=== PATIENT | male | born 1980 | race Caucasian/White ===

== ENCOUNTER 2020-08-03 09:00 | Emergency (ER) | payer OTHER ==
[~2020-08-03] VITALS: Ht 177.8 cm; Wt 95.3 kg
[2020-08-03 09:40] LABS: ABSOLUTE NEUTROPHILS 5.8 thou/uL (1.4-8.2); BASOPHILS 0.7 % (0.0-2.0); HEMATOCRIT 41.9 % (42.0-52.0); HEMOGLOBIN 14.6 gm/dL (14.0-18.0); LYMPHOCYTES 28.9 % (24.0-44.0); MCH 33.7 pg (26.0-34.0); MCHC 34.9 g/dL (28.0-37.0); MCV 96.5 fL (80.0-100.0); MONOCYTES 9.8 % (1.0-8.0); PLATELET COUNT 324 thou/uL (150-400); POLYS 59.6 % (36.0-66.0); RBC 4.34 mil/uL (4.50-6.00); RDW 12.9 % (10.5-14.5); WBC 9.7 thou/uL (4.0-11.0)
[2020-08-03 09:44] LABS: CREATININE 0.9 mg/dL (0.7-1.3)
[2020-08-03 09:50] LABS: ALBUMIN 3.6 g/dL (3.4-5.0); TOTAL BILIRUBIN 0.9 mg/dL (0.2-1.0); TOTAL PROTEIN 6.9 g/dL (6.4-8.2)
[2020-08-03 10:07] LABS: PROTIME 10.3 Seconds (9.3-11.4)
--- NOTE | 2020-08-03 10:48 | EKG ---
[address] [employer] [place] [address] ELECTROCARDIOGRAM REPORT Name: TYREE HARGROVE Room #: [facility] [id number] Admission: 08/03/20 Attend Phys: Discharge: Date of : 76 Report #: [id number] [facility] ED Test Date: 2020-08-03 Test Time: 09:46:20 Pat Name: TYREE HARGROVE Department: Room: Gender: Color Checker: [facility] : 1980 Requested By: Kvng Walker Order Number: [id number] MD: Albino Duke Measurements Intervals [place] Rate: 93 P: 11 NE: 123 QRS: -5 QRSD: 90 T: -10 QT: 361 QTc: 449 Interpretive Statements Sinus rhythm Borderline T abnormalities, inferior leads No previous ECG available for comparison Electronically Signed On 08-03-2020 10:48:00 MEAT STOCK CLERK by Albino Duke [email or web address] <ELECTRONICALLY SIGNED> By: Albino Duke MD, [facility] 08/03/20 1048 0946 09 Albino Duke MD, FACC /EPI
[2020-08-03] MEDS ORDERED: POTASSIUM20 PO (11:34)
[2020-08-03] MEDS ORDERED: FUROSEMIDE 20 M20 MG PO (11:34)
[2020-08-03 11:44] VITALS: BP 122/75
== END 2020-08-03 11:44 | disposition home or self-care (01) ==
LOC: ER 09:00
PROVIDERS: Emergency Medicine
DX: R60.0 Localized edema (principal); I10 Essential (primary) hypertension; M10.9 Gout, unspecified

== ENCOUNTER 2020-10-19 08:42 | Emergency (ER) | payer OTHER ==
[~2020-10-19] VITALS: Ht 177.8 cm; Wt 94.3 kg
[~2020-10-19 08:42] MED LIST: FUROSEMIDE 20 M20 MG PO; POTASSIUM20 PO
[2020-10-19 08:59] LABS: URINE BILIRUBIN NEGATIVE (Negative); URINE BLOOD NEGATIVE (Negative); URINE CLARITY CLEAR; URINE COLOR YELLOW; URINE GLUCOSE-RANDOM* NEGATIVE (Negative); URINE KETONES NEGATIVE (Negative); URINE LEUKOCYTES-REFLEX NEGATIVE (Negative); URINE NITRITE-REFLEX NEGATIVE (Negative); URINE PROTEIN (DIPSTICK) NEGATIVE (Negative); URINE UROBILINOGEN 0.2 E.U./dl (0.2-1.0)
[2020-10-19] MEDS ORDERED: HCTZ PO (09:22)
[2020-10-19 10:05] LABS: CALCIUM 9.4 mg/dL (8.5-10.1); POTASSIUM 3.6 mmol/L (3.5-5.1)
[2020-10-19 10:12] LABS: ALBUMIN 3.6 g/dL (3.4-5.0); TOTAL BILIRUBIN 0.5 mg/dL (0.2-1.0); TOTAL PROTEIN 7.2 g/dL (6.4-8.2)
[2020-10-19 10:18] LABS: ABSOLUTE NEUTROPHILS 6.7 thou/uL (1.4-8.2); BASOPHILS 0.3 % (0.0-2.0); EOSINOPHILS 0.6 % (0.0-3.0); HEMATOCRIT 46.1 % (42.0-52.0); HEMOGLOBIN 16.3 gm/dL (14.0-18.0); LYMPHOCYTES 18.7 % (24.0-44.0); MCH 34.3 pg (26.0-34.0); MCHC 35.5 g/dL (28.0-37.0); MCV 96.7 fL (80.0-100.0); MONOCYTES 3.4 % (1.0-8.0); PLATELET COUNT 344 thou/uL (150-400); RBC 4.76 mil/uL (4.50-6.00); RDW 12.4 % (10.5-14.5); WBC 8.7 thou/uL (4.0-11.0)
[2020-10-19] MEDS ORDERED: AMOX TR-K CLV1 EAC4 PO (12:53)
[2020-10-19] MEDS ORDERED: AMOXICILLIN875 MG PO (12:53)
[2020-10-19] MEDS ORDERED: NORCO5 PO (12:53)
[2020-10-19] MEDS ORDERED: METRONIDAZOLE500 M4 PO (12:53)
[2020-10-19 13:34] VITALS: BP 130/79
--- NOTE | 2020-10-19 15:16 | EKG ---
[facility] [email or web address] [address] ELECTROCARDIOGRAM REPORT Name: TYREE HARGROVE Room #: DEP [facility]#: [id number] Admission: 10/19/20 Attend Phys: Discharge: 10/19/20 Date of : 76 Report #: [id number] [facility] ED Test Date: 2020-10-19 Test Time: 09:15:39 Pat Name: TYREE HARGROVE Department: Room: Gender: M Treasury Representative: : 1980 Requested By: Lulú Ortez Order Number: [id number] MD: Albino Duke Measurements Intervals [place] Rate: 99 P: 38 CA: 121 QRS: 6 QRSD: 83 T: 2 QT: 337 QTc: 433 Interpretive Statements Sinus rhythm Probable left atrial enlargement Baseline wander in lead(s) V1 Compared to ECG 08/03/2020 09:46:20 T-wave abnormality no longer present Electronically Signed On 10-19-2020 15:16:23 CDT by Albino Duke [email or web address] <ELECTRONICALLY SIGNED> By: Albino Duke MD, [facility] 10/19/20 1516 4 Albino Duke MD, [facility] /EPI
== END 2020-10-19 13:46 | disposition home or self-care (01) ==
LOC: ER 08:42
PROVIDERS: Emergency Medicine
DX: K57.32 Diverticulitis of large intestine without perforation or abscess without bleeding (principal); I10 Essential (primary) hypertension; M10.9 Gout, unspecified; Z79.899 Other long term (current) drug therapy

== ENCOUNTER 2021-01-08 14:09 | Inpatient (IN) | payer OTHER ==
[~2021-01-08] VITALS: Ht 177.8 cm; Wt 93.9 kg
[~2021-01-08 14:09] MED LIST changes: +AMOX TR-K CLV1 EAC4 PO; +AMOXICILLIN875 MG PO; +HCTZ PO; +METRONIDAZOLE500 M4 PO; +NORCO5 PO
[2021-01-08 15:07] LABS: BE(vivo) 2.7 mmol/L (-2 to +3); HCO3 25.5 mmol/L (22.0-26.0); PCO2 34.3 mmHg (35.0-45.0); PO2 47.9 mmHg (80.0-100.0); pH 7.489 (7.360-7.450); sO2 87.1 % (92.0-98.0)
[2021-01-08] MEDS ORDERED: SUPER THERAVIT1 EACH PO (15:16)
[2021-01-08] MEDS ORDERED: NORVASC10 MG PO (15:16)
[2021-01-08] MEDS ORDERED: HYDROCHLOROTH12.5 M2 PO (15:16)
[2021-01-08] MEDS ORDERED: LISINOPRIL20 MG PO (15:16)
[2021-01-08] MEDS ORDERED: ALLOPURINOL 10100 M1 PO (15:17)
[2021-01-08 15:31] LABS: ABSOLUTE NEUTROPHILS 4.5 thou/uL (1.4-8.2); BASOPHILS 0.1 % (0.0-2.0); HEMOGLOBIN 15.6 gm/dL (14.0-18.0); LYMPHOCYTES 17.9 % (24.0-44.0); MCH 32.8 pg (26.0-34.0); MCHC 34.6 g/dL (28.0-37.0); MCV 94.8 fL (80.0-100.0); PLATELET COUNT 188 thou/uL (150-400); RBC 4.74 mil/uL (4.50-6.00); RDW 12.8 % (10.5-14.5); WBC 5.9 thou/uL (4.0-11.0)
[2021-01-08 15:43] LABS: ANION GAP 6 mmol/L (7-16); BUN 20 mg/dL (7-18); CALCIUM 8.3 mg/dL (8.5-10.1); CHLORIDE 97 mmol/L (98-107); CO2 29 mmol/L (21-32); CREATININE 1.1 mg/dL (0.7-1.3); GLUCOSE 118 mg/dL (74-106); POTASSIUM 3.6 mmol/L (3.5-5.1); SODIUM 132 mmol/L (136-145)
[2021-01-08 15:54] LABS: ALBUMIN 2.9 g/dL (3.4-5.0); SGOT 52 U/L (15-37); SGPT 73 U/L (30-65); TOTAL BILIRUBIN 0.7 mg/dL (0.2-1.0); TOTAL PROTEIN 6.9 g/dL (6.4-8.2); TROPONIN-I <0.06 ng/mL (<0.06)
[2021-01-08 15:55] LABS: APTT 29.1 Seconds (24.5-32.8); INR 0.98; PROTIME 10.7 Seconds (10.5-12.1)
[2021-01-08 16:46] LABS: URINE BILIRUBIN NEGATIVE (Negative); URINE BLOOD NEGATIVE (Negative); URINE CLARITY CLEAR; URINE COLOR YELLOW; URINE GLUCOSE-RANDOM* NEGATIVE (Negative); URINE KETONES NEGATIVE (Negative); URINE LEUKOCYTES-REFLEX NEGATIVE (Negative); URINE NITRITE-REFLEX NEGATIVE (Negative); URINE PROTEIN (DIPSTICK) TRACE (Negative); URINE SPECIFIC GRAVITY 1.015 (1.005-1.035); URINE UROBILINOGEN 0.2 E.U./dl (0.2-1.0)
--- NOTE | 2021-01-08 22:36 | NUR ---
TRIAGE VITALS WERE NOT INPUTTED INTO THE TRIAGE NOTE.
[2021-01-08 23:42] VITALS: BP 110/64
[2021-01-08 23:55] VITALS: BP 101/65
[2021-01-09 03:41] VITALS: BP 105/70
[2021-01-09 03:50] LABS: ABSOLUTE NEUTROPHILS 3.2 thou/uL (1.4-8.2); BASOPHILS 0.2 % (0.0-2.0); HEMATOCRIT 39.2 % (42.0-52.0); HEMOGLOBIN 13.9 gm/dL (14.0-18.0); LYMPHOCYTES 18.6 % (24.0-44.0); MCH 33.3 pg (26.0-34.0); MCHC 35.5 g/dL (28.0-37.0); MCV 93.9 fL (80.0-100.0); MONOCYTES 6.2 % (1.0-8.0); PLATELET COUNT 177 thou/uL (150-400); RBC 4.17 mil/uL (4.50-6.00); WBC 4.2 thou/uL (4.0-11.0)
[2021-01-09 03:58] LABS: CALCIUM 7.5 mg/dL (8.5-10.1); MAGNESIUM 2.4 mg/dL (1.8-2.4)
[2021-01-09 03:59] LABS: ALBUMIN 2.4 g/dL (3.4-5.0); CALCIUM 7.5 mg/dL (8.5-10.1); DIRECT BILIRUBIN 0.1 mg/dL (<0.1-0.2); POTASSIUM 4.5 mmol/L (3.5-5.1); TOTAL BILIRUBIN 0.4 mg/dL (0.2-1.0); TOTAL PROTEIN 6.1 g/dL (6.4-8.2)
[2021-01-09 04:03] LABS: POTASSIUM 4.6 mmol/L (3.5-5.1)
--- NOTE | 2021-01-09 07:35 | NUR ---
PT MAKING SLOW PROGRESS TOWARDS GOALS. X1 DOSE OF MORPHINE FOR CHEST DISCOMFORT R/T COUGHING. PT REPORTED RELIEF OF PAIN AFTER DOSE.
[2021-01-09 07:36] VITALS: BP 102/68
--- NOTE | 2021-01-09 10:31 | EKG ---
[address] [place] [address] ELECTROCARDIOGRAM REPORT Name: TYREE HARGROVE Room #: 359-P ADM IN M.R.#: [id number] Admission: 01/08/21 Attend Phys: Socrates Mccall MD Discharge: Date of : 76 Report #: [id number] [facility] ED Test Date: 2021-01-08 Test Time: 14:43:59 Pat Name: TYREE HARGROVE Department: Room: [facility] Gender: M Customer Service Agent: GREG : 1980 Requested By: Tk Mesa Order Number: [id number] MD: Ang Saunders Measurements Intervals [place] Rate: 112 P: 37 MN: 117 QRS: -6 QRSD: 81 T: 8 QT: 316 QTc: 432 Interpretive Statements Sinus tachycardia Otherwise normal tracing Compared to ECG 10/19/2020 09:15:39 Heart rate is increased Electronically Signed On 01-09-2021 10:30:59 CDT by Ang Saunders [email or web address] <ELECTRONICALLY SIGNED> By: Ang Saunders MD, [facility] 01/09/21 1030 1443 1443 Ang Saunders MD, [facility] /EPI
[2021-01-09 10:40] LABS: D-DIMER 0.21 ug/mLFEU (0.19-0.50)
[2021-01-09 11:06] VITALS: BP 103/71
[2021-01-09 16:10] VITALS: BP 104/76
--- NOTE | 2021-01-09 18:12 | NUR ---
ASSUMED PATIENT CARE AT 0700. A/O X4. INCREASED 02 TO 10L/NC WITH SAT 92-93%. COUGH. C/O CHEST PAIN DUE TO COUGH. UP AD INGA. BIPAP PRN. WILL KEEP MONITOR.
[2021-01-09 19:59] VITALS: BP 110/71
[2021-01-10 04:45] VITALS: BP 113/87
[2021-01-10 05:25] LABS: HEMATOCRIT 39.4 % (42.0-52.0); HEMOGLOBIN 13.4 gm/dL (14.0-18.0); MCH 32.8 pg (26.0-34.0); MCHC 34.1 g/dL (28.0-37.0); MCV 96.1 fL (80.0-100.0); RBC 4.1 mil/uL (4.50-6.00); RDW 12.8 % (10.5-14.5); WBC 4.7 thou/uL (4.0-11.0)
[2021-01-10 05:49] LABS: ALBUMIN 2.2 g/dL (3.4-5.0); CALCIUM 7.3 mg/dL (8.5-10.1); CREATININE 0.9 mg/dL (0.7-1.3); DIRECT BILIRUBIN 0.1 mg/dL (<0.1-0.2); PHOSPHORUS 2.7 mg/dL (2.5-4.9); POTASSIUM 3.8 mmol/L (3.5-5.1); TOTAL BILIRUBIN 0.3 mg/dL (0.2-1.0); TOTAL PROTEIN 5.7 g/dL (6.4-8.2)
--- NOTE | 2021-01-10 06:03 | NUR ---
C/O chest soreness from coughing. PATTERN ROOM ATTENDANT notified and order received. Tessalon perle and toradol IV given to pt. with some relief. O2 at 10L/HF with O2 sat in the low to mid 90's. RT tried to put pt. on BIPAP but only lasted few minutes. Ambien given , slept some. MRSA positive result called to PATTERN ROOM ATTENDANT. Cont. on enhanced precaution , afebrile. Voided per urinal.
[2021-01-10 07:27] VITALS: BP 114/84
--- NOTE | 2021-01-10 07:50 | HC ---
[facility] [place] [address] CONSULTATION Name: TYREE HARGROVE Room #: 359-P ADM IN M.R.#: [id number] Admission: 01/08/21 Attend Phys: Socrates Mccall MD Discharge: Date of : 76 Report #: [id number] THIS REPORT FOR: cc: ED - No family physician/PCP FAM - No family physician/PCP Obi Cantrell MD ~ DATE OF SERVICE: 01/09/2021 INFECTIOUS DISEASE CONSULTATION ATTENDING PHYSICIAN: Dr. Mccall. REASON FOR EVALUATION: COVID-19 infection, complicated by pneumonitis and respiratory failure. HISTORY OF PRESENT ILLNESS: Chart reviewed. The patient examined. This is a 40-year-old gentleman with history of hypertension, previous history of gout and diverticulitis as well who noted onset of illness, generalized aches, pains, some fevers roughly a week prior to his admission, had been evaluated and tested positive for COVID. Subsequently, all those things resolved; however, developed increased cough that is quite vigorous that led to some chest pain and discomfort as well as progressive dyspnea, noted he had poor p.o. intake. He became quite weak with some weight loss, nauseated as well. On evaluation, was found to have patchy infiltrates. On chest x-ray, ABG showed a pH 4.89, pO2 of 47.9 on room air. Lactic acid is 1.2. Procalcitonin less than 0.05. CT of the chest showed no evidence of PE, although confirmed multifocal ground glass pulmonary opacities. Urinalysis otherwise unremarkable. Blood cultures collected at time of admission are sterile thus far. Due to his respiratory failure, he was placed on supplemental oxygen, currently on 10 liters per nasal cannula. He is generally lucid at this point. ALLERGIES: None known. MEDICATIONS: Include ascorbic acid, thiamine, dexamethasone, azithromycin, ceftriaxone, allopurinol, lisinopril, pantoprazole, zolpidem, remdesivir. PAST MEDICAL HISTORY: As described above, hypertension, history of gout, renal lithiasis, fatty liver disease, history of depression, anxiety. SOCIAL HISTORY: Nonsmoker, recently stopped drinking. No illicit drug use. FAMILY HISTORY: Noncontributory. REVIEW OF SYSTEMS: Otherwise, unremarkable 10-point review of systems. PHYSICAL EXAMINATION: [address] [address] [facility] Room #: [address] [place] [address] [place] .R.#: [id number] Admission: 01/08/21 Attend Phys: Socrates Mccall MD Discharge: Date of : 76 Report #: [id number] GENERAL: He is generally reasonably well nourished, is in mild to moderate distress at this point. VITAL SIGNS: Temperature 97.8, pulse 92, respirations 16, blood pressure 102/60. SKIN: Warm, dry, no rashes. HEENT: Otherwise, unremarkable. Nasal cannula in place. Extraocular muscles intact. NECK: Supple. LUNGS: Bilateral scattered coarse breath sounds. HEART: Regular, borderline tachycardic. I do not appreciate a murmur. ABDOMEN: Mildly distended, somewhat firm, nontender. EXTREMITIES: No cyanosis. GENITOURINARY AND RECTAL: Deferred. LABORATORY DATA: Blood cultures sterile thus far. Most recent electrolytes, sodium 136, potassium 4.6, chloride 101, bicarbonate is 28, anion gap of 7, BUN and creatinine 14 and 1.0, estimated GFR of 82. CBC: White count of 4.2, H and H 13.9 and 39.2, platelets of 177. Urinalysis unremarkable. CT of the chest as described above. Procalcitonin less than 0.05. Liver function tests were otherwise notable for mild elevation in transaminases, AST of 52, ALT of 73. Albumin 2.9. CRP of 75.7. ASSESSMENT AND PLAN: COVID-19 infection, complicated by pneumonitis, respiratory failure. He appears quite tenuous at this point, we will add Actemra in addition to the corticosteroids and the remdesivir. Also, adjust antimicrobial therapy, would be concerned about secondary bacterial pneumonitis as well, is not clear he has significant risk factors at this point, but certainly seems to be heading in the wrong direction. Continue to support him. <ELECTRONICALLY SIGNED> By: Obi Cantrell MD 01/10/21 0750 0758 1005 Obi Cantrell MD /nt
[2021-01-10 11:09] VITALS: BP 124/84
[2021-01-10 15:52] VITALS: BP 112/78
--- NOTE | 2021-01-10 18:18 | NUR ---
ASSUMED PATIENT CARE AT 0700. A/O X4. AMBULATED IN ROOM. SOB WITH EXERTION. ON 12L/NC NOW. VSS. NOT TOWARDS POC GOALS.
[2021-01-10 20:02] VITALS: BP 120/79
[2021-01-11 03:10] LABS: ALBUMIN 2.2 g/dL (3.4-5.0); CALCIUM 7.2 mg/dL (8.5-10.1); CREATININE 0.8 mg/dL (0.7-1.3); DIRECT BILIRUBIN 0.1 mg/dL (<0.1-0.2); PHOSPHORUS 2.9 mg/dL (2.5-4.9); POTASSIUM 3.7 mmol/L (3.5-5.1); TOTAL BILIRUBIN 0.3 mg/dL (0.2-1.0); TOTAL PROTEIN 5.5 g/dL (6.4-8.2)
[2021-01-11 04:06] VITALS: BP 124/87
--- NOTE | 2021-01-11 04:55 | NUR ---
C/O chest soreness from coughing. Pain med given with some relief. O2 at 12L/HF ,shortness of breath with exertion. Cont. on enhanced precaution , afebrile. Cough med also given with some help. Slept some during the night. Voiding per urinal.
[2021-01-11 07:42] VITALS: BP 125/85
[2021-01-11 11:44] VITALS: BP 122/79
--- NOTE | 2021-01-11 12:45 | NUR ---
INITIAL ASSESSMENT: JACKELINE reviewed chart and spoke with nursing and attending. Pt was admitted from home due to COVID pneumonia/hypoxia. Pt placed in Enhanced Isolation. Pt has not received the COVID vaccine. Pt is afebrile and on 11L of O2. Pt is on IV abx and IV steroids. Remdesivir and Ivermectin started. JACKELINE spoke with pt via phone. Introduced role of SW. Pt is alert/orientated x 4. Pt reports he lives at home. Prior to admission, pt was independent with ADLs. No use of DME. No hx of post-acute placement or HH services. Pt reports that his PCP is at the [facility]. Pt states he cannot remember the physician's name, as he has seen him once. Pt states he has been in contact with the HR dept at his employer, [employer], who states they need info to assist with completion of pt's FMLA and short-term disability claim. Info for HR rep provided: Amberly Zarate ( ). Pt gave consent for JACKELINE to contact Amberly and provide clinical info as needed. JACKELINE spoke with Amberly via phone to provide update. FMLA and ST disability ppwk emailed to JACKELINE for completion by physician. Pt will need to sign. Plan is for pt to discharge home when medically stable. JACKELINE is following to assist as needed with discharge planning.
[2021-01-11 16:02] VITALS: BP 126/87
--- NOTE | 2021-01-11 18:23 | NUR ---
ASSUMED PATIENT CARE AT 0700. STILL ON 12L/NC. SOB WITH EXERTION. PAIN MEDS GIVEN NEEDS. AMBULATED IN ROOM. NOT TOWARDS POC GOALS.
[2021-01-11 20:03] VITALS: BP 120/87
[2021-01-12 03:39] LABS: ALBUMIN 2.4 g/dL (3.4-5.0); CALCIUM 7.8 mg/dL (8.5-10.1); CREATININE 0.9 mg/dL (0.7-1.3); DIRECT BILIRUBIN 0.1 mg/dL (<0.1-0.2); PHOSPHORUS 4.2 mg/dL (2.5-4.9); POTASSIUM 3.8 mmol/L (3.5-5.1); TOTAL BILIRUBIN 0.5 mg/dL (0.2-1.0); TOTAL PROTEIN 5.7 g/dL (6.4-8.2)
[2021-01-12 04:40] VITALS: BP 122/79
--- NOTE | 2021-01-12 06:06 | NUR ---
Pain med given for chest soreness from coughing with good relief. Sleep med also given. O2 at 12L/HF at shift change then Dr. Boss titrated O2 down 10L/HF. O2 sat in the low 90's. He stated he slept better last night. Voiding per urinal. Slowly making some progress towards care plan goals.
[2021-01-12 07:16] VITALS: BP 128/88
[2021-01-12 11:10] VITALS: BP 112/77
[2021-01-12 15:27] VITALS: BP 115/80
--- NOTE | 2021-01-12 15:39 | NUR ---
JACKELINE reviewed chart and spoke with nursing and attending physician. Pt remains in Enhanced Isolation due to COVID. Pt is afebrile and on 10L of O2. Pt is on IV abx and IV steroids. Remdesivir has been started. SW notified attending physician of needed FMLA and short-term disability ppwk completed for pt's employer. JACKELINE is following to assist as needed with discharge planning.
[2021-01-12 20:10] VITALS: BP 131/87
[2021-01-13 02:36] LABS: ABSOLUTE NEUTROPHILS 3.9 thou/uL (1.4-8.2); BASOPHILS 0.2 % (0.0-2.0); EOSINOPHILS 0.1 % (0.0-3.0); HEMATOCRIT 41.5 % (42.0-52.0); HEMOGLOBIN 14.5 gm/dL (14.0-18.0); LYMPHOCYTES 20.8 % (24.0-44.0); MCH 32.9 pg (26.0-34.0); MCHC 34.9 g/dL (28.0-37.0); MCV 94.4 fL (80.0-100.0); MONOCYTES 6.8 % (1.0-8.0); POLYS 72.1 % (36.0-66.0); RBC 4.39 mil/uL (4.50-6.00); RDW 12.5 % (10.5-14.5); WBC 5.4 thou/uL (4.0-11.0)
[2021-01-13 02:47] LABS: PLATELET COUNT 432 thou/uL (150-400)
[2021-01-13 02:59] LABS: D-DIMER 0.3 ug/mLFEU (0.19-0.50); INR 0.98; PROTIME 10.7 Seconds (10.5-12.1)
[2021-01-13 03:20] LABS: ALBUMIN 2.5 g/dL (3.4-5.0); CALCIUM 7.6 mg/dL (8.5-10.1); CREATININE 0.8 mg/dL (0.7-1.3); POTASSIUM 3.8 mmol/L (3.5-5.1); TOTAL BILIRUBIN 0.5 mg/dL (0.2-1.0); TOTAL PROTEIN 5.8 g/dL (6.4-8.2)
[2021-01-13 05:20] VITALS: BP 137/94
[2021-01-13 07:35] VITALS: BP 138/87
[2021-01-13 11:13] VITALS: BP 124/76
[2021-01-13 15:37] VITALS: BP 118/71
--- NOTE | 2021-01-13 16:08 | NUR ---
JACKELINE reviewed chart and spoke with nursing and attending physician. Pt remains in Enhanced Isolation due to COVID. Pt is afebrile and on 8L of O2. Pt is on IV abx and IV steroids. Pt is completing course of Remdesivir. JACKELINE notified that [place] has [place] [facility] [place]. JACKELINE spoke with pt via phone. Provided update. Awaiting completion of FMLA and short term disability ppwk to sent to his employer. JACKELINE discussed the possibility to [place] the [place] when a [place] becomes available. Pt states he would prefer to stay at [facility] for continued care. JACKELINE is following to assist as needed with discharge planning.
--- NOTE | 2021-01-13 16:14 | NUR ---
INITIAL ASSESSMENT: SW reviewed chart and spoke with nursing. Pt was admitted from home due to chest pain. Pt is on 3L of O2 and is on IV abx and IV steroids. Pt has received the Moderna COVID vaccine. SW spoke with pt via phone. Introduced role of SW. Pt appears to be alert/orientated. Pt reports she lives at home with her . Prior to admission, pt was independent with ADLs. Pt does have a walker. 3 steps to enter their home and no steps inside. Pt has a home CPAP machine through [employer]. Pt's home O2 is through [facility]. Pt states she uses 3L continuously. No hx of HH services or post-acute placement. Pt's PCP is Dr. Amy Hall. Pt's plan is to discharge home when medically stable. SW is following to assist as needed with discharge planning.
[2021-01-13 20:06] LABS: HAV IgM AB (ANTI-HAV IgM) Negative (Negative); HEPATITIS B SURFACE AG Negative (Negative); HEPATITIS C VIRUS AB <0.1 (0.0-0.9)
[2021-01-13 21:00] VITALS: BP 109/81
[2021-01-14 02:33] LABS: HEMATOCRIT 43.5 % (42.0-52.0); HEMOGLOBIN 14.9 gm/dL (14.0-18.0); MCH 32.6 pg (26.0-34.0); MCHC 34.2 g/dL (28.0-37.0); MCV 95.6 fL (80.0-100.0); RBC 4.55 mil/uL (4.50-6.00); RDW 12.8 % (10.5-14.5); WBC 10.1 thou/uL (4.0-11.0)
[2021-01-14 02:46] LABS: ALBUMIN 2.6 g/dL (3.4-5.0); CALCIUM 8.1 mg/dL (8.5-10.1); POTASSIUM 4.7 mmol/L (3.5-5.1); TOTAL BILIRUBIN 0.5 mg/dL (0.2-1.0); TOTAL PROTEIN 5.9 g/dL (6.4-8.2)
[2021-01-14 04:00] VITALS: BP 116/82
[2021-01-14 08:31] VITALS: BP 115/72
[2021-01-14 11:27] VITALS: BP 105/62
--- NOTE | 2021-01-14 15:10 | NUR ---
JACKELINE reviewed chart and spoke with nursing and attending physician. Pt remains in Enhanced Isolation due to COVID. Pt is afebrile and on 3L of O2.Pt is on IV abx and IV steroids. Pt is progressing towards goals for discharge. Pt may need to go home on O2. JACKELINE received voice message from SAE Velazquez CM with [employer] stating she can assist with discharge needs. JACKELINE returned call to [facility] ( ext [phone]). Voice message left. Received message from Caroline with names of three possible DME providers. Voice messages left at [facility] and [facility]. JACKELINE spoke with Elmer at [facility], who states they do not provide home O2. JACKELINE spoke with pt via phone to discuss discharge plan. Pt is aware that he may need home O2. JACKELINE discussed possible DME providers. No preference voiced. JACKELINE faxed referral to [facility] for review. Notified [facility] liaison of new referral. Pt will need a rest/exercise oximetry prior to discharge to determine home O2 needs. Will need those test results and script faxed to [facility] if home O2 is needed. JACKELINE is following to assist as needed with discharge planning. [facility]--
[2021-01-14 16:32] VITALS: BP 126/76
[2021-01-14 19:48] VITALS: BP 104/64
--- NOTE | 2021-01-14 22:40 | NUR ---
PT REQUESTED PRN BREATHING TREATMENT AND REPORTED RELIEF FROM CHEST TIGHTNESS. PT REPORTED GENERALIZED MUSCLE PAIN AND PRN FOR PAIN PROVIDED. PT ASKING FOR FOOD. O2 PER NC. LUNGS WITH WHEEZES. PT INDEP WITH AMBULATION.
[2021-01-15 05:10] VITALS: BP 101/61
[2021-01-15 07:08] LABS: HAV IgM AB (ANTI-HAV IgM) Negative (Negative); HEPATITIS B SURFACE AG Negative (Negative); HEPATITIS C VIRUS AB <0.1 (0.0-0.9)
[2021-01-15 07:39] VITALS: BP 105/71
[2021-01-15 11:34] VITALS: BP 103/67
[2021-01-15 15:40] VITALS: BP 107/70
--- NOTE | 2021-01-15 19:26 | NUR ---
PROGRESSING TOWARDS TO POC GOALS.
[2021-01-15 19:59] VITALS: BP 107/66
--- NOTE | 2021-01-15 20:59 | NUR ---
PT INDEP AMBULATING IVF INTACT. O2 PER NC. LUNGS WITH WHEEZES. PT REQUESTED SNACK AND PROVIDED.
[2021-01-16 05:04] VITALS: BP 117/87
[2021-01-16 06:19] LABS: HEMATOCRIT 45.2 % (42.0-52.0); HEMOGLOBIN 15.6 gm/dL (14.0-18.0); MCH 32.9 pg (26.0-34.0); MCHC 34.6 g/dL (28.0-37.0); MCV 95.2 fL (80.0-100.0); RBC 4.74 mil/uL (4.50-6.00); RDW 13.2 % (10.5-14.5); WBC 12.7 thou/uL (4.0-11.0)
[2021-01-16 06:53] LABS: CALCIUM 8.6 mg/dL (8.5-10.1); CREATININE 1.1 mg/dL (0.7-1.3); POTASSIUM 4.7 mmol/L (3.5-5.1); TOTAL BILIRUBIN 0.6 mg/dL (0.2-1.0); TOTAL PROTEIN 6.5 g/dL (6.4-8.2)
[2021-01-16 08:18] VITALS: BP 110/72
[2021-01-16] MEDS ORDERED: CEFDINIR300 MG PO (13:28)
[2021-01-16] MEDS ORDERED: VITAMIN B-1100 M2 PO (13:30)
[2021-01-16] MEDS ORDERED: PREDNISONE 20 M20 MG PO (13:47)
[2021-01-16 14:30] VITALS: BP 110/72
--- NOTE | 2021-01-16 14:50 | NUR ---
PT HAS POOR UNDERSTANDING OF DISCHARGE EDUCATION REGARDING ISOLATION STATUS AND COVID PRECAUTIONS. PT THINKS HE IS COVID NEGATIVE BECAUSE HE IS DISCHARGING FROM HOSPITAL. THIS RN EXPLAINED ISOLATION PRECAUTIONS WELL NEED TO PROTECT OTHER INDIVIDUALS FROM EXPOSURE. DISCHARGE PAPERWORK SIGNED.
[2021-01-16 16:11] VITALS: BP 110/72
== END 2021-01-16 16:28 | disposition home or self-care (01) | DRG 871 ==
LOC: ER 14:09 → 3W 17:17 → EROBS 17:17 → 3W 23:34
PROVIDERS: Emergency Medicine; Internal Medicine; Internal Medicine Pulmonary Disease; Nurse Practitioner; Specialist; ADMIT Hospitalist; ATTEND Hospitalist
PROC: XW033E5 Introduction of Remdesivir Anti-infective into Peripheral Vein, Percutaneous Approach, New Technology Group 5 (ICD-10-PCS; principal; 2021-01-08)
PROC: XW033H5 Introduction of Tocilizumab into Peripheral Vein, Percutaneous Approach, New Technology Group 5 (ICD-10-PCS; 2021-01-09)
PROC: 5A0935A Assistance with Respiratory Ventilation, Less than 24 Consecutive Hours, High Flow/Velocity Cannula (ICD-10-PCS; 2021-01-09)
PROC: 5A0935A Assistance with Respiratory Ventilation, Less than 24 Consecutive Hours, High Flow/Velocity Cannula (ICD-10-PCS; 2021-01-10)
PROC: 5A0935A Assistance with Respiratory Ventilation, Less than 24 Consecutive Hours, High Flow/Velocity Cannula (ICD-10-PCS; 2021-01-11)
PROC: 5A0945A Assistance with Respiratory Ventilation, 24-96 Consecutive Hours, High Flow/Velocity Cannula (ICD-10-PCS; 2021-01-12)
DX: A41.9 Sepsis, unspecified organism (principal); U07.1 COVID-19; J12.82 Pneumonia due to coronavirus disease 2019; J96.01 Acute respiratory failure with hypoxia; E87.1 Hypo-osmolality and hyponatremia; I10 Essential (primary) hypertension; M10.9 Gout, unspecified; E86.0 Dehydration; R79.89 Other specified abnormal findings of blood chemistry; K76.0 Fatty (change of) liver, not elsewhere classified; F32.9 Major depressive disorder, single episode, unspecified; F41.9 Anxiety disorder, unspecified; E87.6 Hypokalemia; F10.11 Alcohol abuse, in remission; K80.20 Calculus of gallbladder without cholecystitis without obstruction; D47.3 Essential (hemorrhagic) thrombocythemia; Z79.899 Other long term (current) drug therapy
CPT/HCPCS: 10879

== ENCOUNTER → 2021-02-22 | Outpatient (CLI) | payer OTHER ==
[~2021-02-22] MED LIST changes: +ALLOPURINOL 10100 M1 PO; +CEFDINIR300 MG PO; +HYDROCHLOROTH12.5 M2 PO; +LISINOPRIL20 MG PO; +NORVASC10 MG PO; +PREDNISONE 20 M20 MG PO; +SUPER THERAVIT1 EACH PO; +VITAMIN B-1100 M2 PO
== END ==
LOC: RAD 15:25
PROVIDERS: ATTEND Nurse Practitioner
DX: R22.40 Localized swelling, mass and lump, unspecified lower limb (principal)